=== PATIENT | female | born 1985 | race Caucasian/White ===

== ENCOUNTER 2022-09-20 11:12 | Outpatient (REF) | payer OTHER, SELFPAY ==
[2022-09-26 16:23] LABS: Vitamin D 25-OH, D2 <4 ng/mL; Vitamin D 25-OH, D3 10 ng/mL; Vitamin D 25-OH, Total 10 ng/mL (30-100)
== END 2022-09-20 11:13 | disposition home or self-care (01) ==
LOC: HO.WFDLDS 11:12
PROVIDERS: Visit Provider Hospitalist
DX: R53.83 Other fatigue (principal)
CPT/HCPCS: 36415; 82306